=== PATIENT | male | born 1985 | race Caucasian/White ===

== ENCOUNTER 2017-10-05 20:50 | Emergency (ER) | payer OTHER ==
[~2017-10-05 20:50] MED LIST: ZOFRAN ODT4 M1 SL
[2017-10-05 22:12] VITALS: BP 140/69
--- NOTE | 2017-10-05 22:18 | ED GI/GU/ABDOMINAL COMPLAINT ---
History of Present Illness General Chief Complaint: Abdominal Pain/Flank Pain Stated Complaint: ABD AND BACK PAIN, SEEN IN [place] 2DAYS AGO FOR [facility] Source: patient, old records Exam Limitations: no limitations Vital Signs & Intake/Output Vital Signs & Intake/Output Vital Signs Date Time Temp Pulse Resp B/P B/P Pulse O2 O2 Flow FiO2 Mean Ox Delivery Rate 10/05 2211 98.4 100 18 140/69 97 10/05 2106 97.5 74 20 138/78 99 Room Air Allergies Coded Allergies: Sulfa (Sulfonamide Antibiotics) (RASH 09/13/17) amoxicillin (HIVES 09/13/17) Reconcile Medications Meloxicam (Mobic) 15 MG TABLET 1 TAB PO DAILY PRN pain Ondansetron (Zofran Odt) 4 MG TAB.RAPDIS 1 TAB SL TID PRN nausea Triage Note: PER PT SEEN 10 DAYS AGO PLACED ON ANTIBIOTICS FOR AN UNKNOWN INFECTION, UNKNOWN SOURCE TEMP OF 103. LAST 2 DAYS HAVING BACK PAIN NO DIFF URINATING NO OTHER CO,SEEN AT [facility], DID ALL KINDS OF TESTS COULD NOT FIND ANYTHING BUT ITS STILL THERE Triage Nurses Notes Reviewed? yes Onset: Gradual Duration: day(s): Timing: recent history Quality/Severity: moderate Location: left flank HPI: 32YO male presents emergency department complaining of left flank pain constant "under his ribs". Patient states that pain was seen and evaluated shortly after onset of pain at [place], they did blood work, UA, chest x-ray without abnormal results. Patient states that symptoms have been persistent. Patient states he was recently treated for a very bad pharyngitis with Keflex, reports he had very abnormal heart rate during that time. Pharyngitis symptoms have resolved. Patient also reports recent increase in blurry vision, he is using his glasses more than he used to. Patient denies fevers, chills, vomiting, diarrhea, constipation, dysuria, hematuria, urinary frequency. (Elaine Guerrero) Past History Travel History Traveled to [place] past 21 day No Medical History Any Pertinent Medical History? none Neurological: NONE EENT: NONE Cardiovascular: NONE Respiratory: NONE Gastrointestinal: NONE Hepatic: NONE Renal: NONE Musculoskeletal: NONE Psychiatric: NONE Endocrine: NONE Surgical History Surgical History: non-contributory Psychosocial History What is your primary language Italian Tobacco Use: Never used Family History Hx Contributory? No (Elaine Guerrero) Review of Systems Review of Systems Constitutional: Reports: no symptoms. EENTM: Reports: see HPI. Respiratory: Reports: no symptoms. Cardiovascular: Reports: no symptoms. GI: Reports: see HPI. Genitourinary: Reports: see HPI. Musculoskeletal: Reports: no symptoms. Skin: Reports: no symptoms. Neurological/Psychological: Reports: no symptoms. Hematologic/Endocrine: Reports: no symptoms. Immunologic/Allergic: Reports: no symptoms. All Other Systems: Reviewed and Negative (Sarah DUGGAN,Elaine Valdovinos) Physical Exam Physical Exam General Appearance: well developed/nourished, no apparent distress, alert, awake Head: atraumatic, normal appearance Eyes: Bilateral: normal appearance, PERRL, EOMI. Ears, Nose, Throat, Mouth: hearing grossly normal, moist mucous membrane Neck: normal inspection, supple, full range of motion Respiratory: normal breath sounds, no respiratory distress, lungs clear, left lateral distal ribcage tenderness Cardiovascular: regular rate/rhythm Gastrointestinal: normal bowel sounds, non-tender, no organomegaly, MILD LLQ/ flank tenderness Back: normal inspection, normal range of motion, no CVA tenderness Extremities: normal range of motion Neurologic/Psych: awake, alert, oriented x 3 Skin: intact, normal color, warm/dry Core Measures ACS in differential dx? No Sepsis Present: No Sepsis Focused Exam Completed? No (Sarah DUGGAN,Elaine Valdovinos) Progress Differential Diagnosis: gastritis, hernia, pyelonephritis, SBO, STD, ureterolithiasis, urinary retention, urethritis, UTI/pyelo Plan of Care: Orders Procedure Date/time Status URINALYSIS 10/05 2204 Complete COMPREHENSIVE METABOLIC PANEL 10/05 2204 Complete CBC WITHOUT DIFFERENTIAL 10/05 2204 Complete Laboratory Tests 10/05/172225: Urine Color YEL, Urine Clarity CLEAR, Urine pH 7.0, Ur Specific [place] 1.015, Urine Protein NEG, Urine Ketones TRACE H, Urine Nitrite NEG, Urine Bilirubin NEG, Urine Urobilinogen 0.2, Ur Leukocyte Esterase NEG, Ur Microscopic EXAM NOT REQUIRED, Urine Hemoglobin NEG, Urine Glucose NEG 10/05/172216: Anion Gap 11, Estimated GFR > 60, BUN/Creatinine Ratio 21.0, Glucose 102 H, Calcium 9.6, Total Bilirubin 0.6, AST 20, ALT 35, Alkaline Phosphatase 38, Total Protein 7.0, Albumin 4.3, Globulin 2.7, Albumin/Globulin Ratio 1.6, CBC w Diff NO MAN DIFF REQ, RBC 4.95, MCV 90.3, MCH 30.8, MCHC 34.1, RDW 12.9, MPV 8.3, Gran % 52.2, Lymphocytes % 35.2, Monocytes % 9.3, Eosinophils % 2.9, Basophils % 0.4, Absolute Granulocytes 2.9, Absolute Lymphocytes 1.9, Absolute Monocytes 0.5 , Absolute Eosinophils 0.2, Absolute Basophils 0 The patient was discussed with Dr. Kolb. Given patient's persistent pain and symptoms will obtain CT scan to further assess for intra-abdominal/renal pathology. CT scan without acute abnormality. Patient has mild left ribcage tenderness, possible costochondritis. Patient started on meloxicam and will follow-up with his primary care physician. He was given strict return precautions. Patient is in no acute distress, sitting comfortably in stretcher, vital signs stable, he is nontoxic appearing. The patient agrees with the plan of care. The patient was discussed with Dr. Kolb who agrees with this plan. Diagnostic Imaging: Viewed by Me: CT Scan. Discussed w/RAD: CT Scan. Radiology Impression: PATIENT: RHETT EVANGELISTA PRESENT AGE: 32 PATIENT ACCOUNT NO: [id number] : 86 LOCATION: [facility] ORDERING PHYSICIAN: Elaine DUGGAN SERVICE DATE: 10/05/17 EXAM TYPE: CAT - CT ABD & PELVIS W/O IV CONTRAS EXAMINATION: CT ABDOMEN AND PELVIS WITHOUT CONTRAST CLINICAL INFORMATION: Left flank pain COMPARISON: None TECHNIQUE: Multidetector volumetric imaging was performed from the superior aspect of the liver through the pubic symphysis. Sagittal and coronal reformatted images were obtained on the technologist's workstation. DLP: 267 mGy-cm FINDINGS: LUNG BASES : The visualized lung bases are unremarkable. LIVER, GALLBLADDER, AND BILIARY TREE: The unenhanced liver is normal in size, shape, and attenuation. No focal hepatic lesion or biliary ductal dilatation is present. The gallbladder is unremarkable with no evidence of radiopaque gallstones, gallbladder wall thickening, or obvious pericholecystic inflammatory changes. PANCREAS: Unremarkable. SPLEEN: Unremarkable. ADRENAL GLANDS: Unremarkable. KIDNEYS AND URETERS: The kidneys are normal in size, shape, and attenuation. No hydronephrosis, hydroureter, or calculi seen. No perinephric stranding. BLADDER: Unremarkable. GASTROINTESTINAL TRACT: The small and large bowel are unremarkable. The appendix is unremarkable. ABDOMINAL WALL: No significant hernia is appreciated. LYMPH NODES: Normal. VASCULAR: Unremarkable. PELVIC VISCERA: Unremarkable. OSSEOUS STRUCTURES: Unremarkable. IMPRESSION: No significant abnormality. DICTATED BY: Juvenal Workman MD DATE/TIME DICTATED: 10/05/172245 OPEN HEAR[employer] WORKER:TUCKER DATE/TIME TRANSCRIBED:10/05/172245 CONFIDENTIAL, DO NOT COPY WITHOUT APPROPRIATE AUTHORIZATION. <Electronically signed in Other Vendor System> SIGNED BY: Juvenal Workman MD 10/05/172251 Initial ED EKG: none (Sarah DUGGAN,Elaine Valdovinos) Departure Departure Disposition: HOME OR SELF CARE Condition: Stable Clinical Impression Primary Impression: Left flank pain Referrals: Ernesto DAVILA,Aaron Russo (PCP/Family) Additional Instructions: Take meloxicam as prescribed as needed for pain. Follow-up with your primary care doctor this week. Return if any worsening symptoms or concerns. Please note that there might be incidental findings in your evaluation that are unrelated to the current emergency department visit. Please notify your primary care doctor about this emergency department visit in order to obtain and review all of the testing performed so that these incidental findings can be monitored as needed. If you had an x-ray performed, please understand that some fractures may not be seen on the initial set of x-rays. If your symptoms persist you might need a repeat set of x-rays to check for such a fracture. If you had a laceration evaluated, please understand that foreign bodies such as glass or wood may not be visible to the naked eye or on plain x-rays. If the wound becomes red, swollen, increasingly more painful or if there is any drainage from the wound, please have it reevaluated by a physician for the possibility of a retained foreign body. If you're unable to follow up as outlined in the discharge instructions please return to the emergency department. Thank you for choosing the Emergency Department for your care. It was a pleasure to serve you today. Departure Forms: Customer Survey General Discharge Information Prescriptions: Current Visit Scripts Meloxicam (Mobic) 1 TAB PO DAILY PRN pain #15 TAB (Sarah DUGGAN,Elaine Valdovinos) PA/MOLD COOLER Co-Sign Statement Statement: ED Attending supervision documentation- [] I saw and evaluated the patient. I have also reviewed all the pertinent lab results and diagnostic results. I agree with the findings and the plan of care as documented in the PA's/MOLD COOLER's documentation. [x] I have reviewed the ED Record and agree with the PA's/MOLD COOLER's documentation. [] Additions or exceptions (if any) to the PAs/MOLD COOLER's note and plan are summarized below: [] (Kennedi DAVILA,Anthony Chacon)
[2017-10-05 22:25] LABS: ABSOLUTE BASOPHIL COUNT 0 /CUMM (0.0-0.2); ABSOLUTE EOSINOPHIL COUNT 0.2 /CUMM (0.0-0.7); ABSOLUTE GRANULOCYTE CT 2.9 /CUMM (1.4-6.5); ABSOLUTE LYMPH COUNT 1.9 /CUMM (1.2-3.4); ABSOLUTE MONOCYTE COUNT 0.5 /CUMM (0.10-0.60); BASOPHIL % 0.4 % (0.0-2.0); EOSINOPHIL % 2.9 % (0-5); GRANULOCYTE % 52.2 % (42.2-75.2); HEMATOCRIT 44.7 % (42-52); MEAN CORPUSCULAR HGB 30.8 PG (27.0-31.0); MEAN CORPUSCULAR HGB CONC 34.1 G/DL (33.0-37.0); MEAN CORPUSCULAR VOLUME 90.3 FL (80.0-94.0); MEAN PLATELET VOLUME 8.3 FL (7.4-10.4); PLATELET COUNT 199 /CUMM (130-400); RBC DISTRIBUTION WIDTH 12.9 % (11.5-14.5); RED BLOOD CELL CT 4.95 /CUMM (4.70-6.10); WHITE BLOOD CELL COUNT 5.5 /CUMM (4.8-10.8)
--- NOTE | 2017-10-05 22:52 | CT SCAN REPORT ---
EXAMINATION: CT ABDOMEN AND PELVIS WITHOUT CONTRAST CLINICAL INFORMATION: Left flank pain COMPARISON: None TECHNIQUE: Multidetector volumetric imaging was performed from the superior aspect of the liver through the pubic symphysis. Sagittal and coronal reformatted images were obtained on the technologist's workstation. DLP: 267 mGy-cm FINDINGS: LUNG BASES: The visualized lung bases are unremarkable. LIVER, GALLBLADDER, AND BILIARY TREE: The unenhanced liver is normal in size, shape, and attenuation. No focal hepatic lesion or biliary ductal dilatation is present. The gallbladder is unremarkable with no evidence of radiopaque gallstones, gallbladder wall thickening, or obvious pericholecystic inflammatory changes. PANCREAS: Unremarkable. SPLEEN: Unremarkable. ADRENAL GLANDS: Unremarkable. KIDNEYS AND URETERS: The kidneys are normal in size, shape, and attenuation. No hydronephrosis, hydroureter, or calculi seen. No perinephric stranding. BLADDER: Unremarkable. GASTROINTESTINAL TRACT: The small and large bowel are unremarkable. The appendix is unremarkable. ABDOMINAL WALL: No significant hernia is appreciated. LYMPH NODES: Normal. VASCULAR: Unremarkable. PELVIC VISCERA: Unremarkable. OSSEOUS STRUCTURES: Unremarkable. IMPRESSION: No significant abnormality.
[2017-10-05] MEDS ORDERED: MOBIC15 M1 PO (23:14)
== END 2017-10-05 23:21 ==
LOC: ERH 20:50
PROVIDERS: Physician Assistant
DX: R10.32 Left lower quadrant pain (principal)
CPT/HCPCS: 74176; 81003